=== PATIENT | male | born 1970 | race Caucasian/White ===

== ENCOUNTER 2021-05-27 18:42 | Emergency (ER) | payer OTHER, SELFPAY ==
--- NOTE | ~2021-05-27 | XR_ITS ---
EXAMINATION: XR ANKLE, RIGHT CLINICAL INFORMATION: Twisted ankle. Swelling. COMPARISON: None TECHNIQUE: 4 views. of the right ankle. FINDINGS: There is significant soft tissue swelling at the anterior lateral malleolus. There is a small avulsion chip fracture inferior to the tip of the lateral malleolus. Fracture donor site appears to be from the lateral talar process rather than the tip of the fibula. Image #2. No fracture of the tibia. Ankle mortise remains congruent. XR/XR ankle RT 2V IMPRESSION: 1. Small avulsion chip fracture from the lateral talar process. 2. Soft tissue swelling at the anterior lateral ankle.
[2021-05-27 18:52] VITALS: BP 137/95; PULSE 92; RESP 18; TEMP 36.8; O2SAT 99; BMI 26.7
--- NOTE | 2021-05-27 20:39 | ED_ITS ---
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 Patient denies hitting head or loss of consciousness. Related Data Previous Rx's Medication Instructions Recorded naproxen 500 mg tablet 500 mg PO BID PRN #20 tab 05/27/21 oxycodone-acetaminophen 5 mg-325 1 tab PO TID PRN #9 tab 05/27/21 mg tablet (Percocet) Allergies Allergy/AdvReac Type Severity Reaction Status Date / Time No Known Allergies Allergy Verified 05/27/21 19:58 [No Known Allergies*] Review of Systems Review of Systems: Yes all other systems are reviewed and are negative Constitutional: Constitutional: Reports as per HPI and Reports no additional constitutional complaints Eyes: Eyes: Reports as per HPI and Reports no additional eye complaints ENT: Reports system reviewed and no additional complaints, except as documented and Reports as per HPI Cardiovascular: Cardiovascular: Reports as per HPI and Reports no additional cardiovascular complaints Respiratory: Respiratory: Reports as per HPI and Reports no additional respiratory complaints Gastrointestinal: Gastrointestinal: Reports as per HPI and Reports no additional gastrointestinal complaints Genitourinary: Genitourinary: Reports no additional male genitourinary complaints and Reports as per HPI Musculoskeletal: Musculoskeletal: Reports no additional musculoskeletal complaints, Reports as per HPI and Reports arthralgias (Ankle pain) Neurologic: Reports system reviewed and no additional complaints, except as documented and Reports as per HPI Psychiatric: Psychiatric: Reports no additional psychiatric complaints and Reports as per HPI PMF Past Medical History Medical History (Updated 05/27/21 @ 20:52 by INGA Rojas) Hernia Surgical History (Updated 05/27/21 @ 18:56 by Indigo Francisco) Hx of appendectomy Social History Social History Advance Directives: No Physical Exam Vital Signs: Vital Signs: Last Vital Signs Temp 98.2 F 05/27/21 18:52 Pulse 92 05/27/21 18:52 Resp 18 05/27/21 18:52 BP 137/95 H 05/27/21 18:52 Pulse Ox 99 05/27/21 18:52 Body Mass Index 26.7 Const: General: cooperative, healthy appearing, comfortable, no acute distress, well developed and alert Orientation/consciousness: patient oriented x3 HENMT: Head: Yes normal to inspection, Yes No palpable skull fracture present, Yes normocephalic and Yes atraumatic Eyes: General: appearance normal, both eyes and all related structures Neck: Neck: Yes normal visual inspection, Yes full ROM, Yes no lymphadenopathy , Yes no meningeal signs, Yes trachea midline, Yes supple and No tender Chest: Chest palpation & inspection: normal inspection of the chest and normal palpation of entire chest wall Resp: Effort & Inspection: normal respiratory effort and able to speak in complete sentences Auscultation: clear to auscultation bilaterally Cardio: Jugular venous distension: no JVD Heart sounds: S1 normal heart sound present and S2 normal heart sound present GI: Inspection: Yes normal to inspection and No abdominal wall ecchymosis Palpation (GI): Soft to palpation, not firm, nontender, no guarding and not rigid : General: No CVA tenderness and Yes no CVA tenderness Back/Spine/Pelvis: Back: no CVA tenderness, No CVA tenderness and No back tenderness Skin: General skin exam: no rashes or lesions noted and elasticity normal Neuro: General: patient oriented x3, gait normal, no meningeal signs and CN's II-XI intact bilaterally Cranial nerves: Yes CN's II-XII intact bilaterally Extrem: General: Yes normal to inspection and Yes full ROM Ankle/foot/toe images: 1. Swelling with ecchymosis and tenderness on palpation. Pedal pulses intact. Vascular and neuro exam intact. Motor exam limited due to pain caused by fracture. Achilles tendon intact. Psych: Appearance: grossly normal, well kempt and not disheveled Course Course Course Narrative: Patient sent for fracture Reevaluation(s) Reevaluation #1: Patient will be placed in posterior splint follow orthopedic. Patient also given crutches Time: 20:50 MDM - Extremity Injury (Lower) MDM Narrative Medical decision making narrative: Left lateral talus fracture Discharge Plan Discharge Clinical Impression: Fracture of talus Patient Disposition: Home, Self-Care Instructions: Foot Fracture in Adults (ED) Additional Instructions: X-ray shows foot fracture. Return to the ED for worsening pain, swelling, bluish black discoloration of toes, numbness, tingling, paralysis of extremities, leg swelling, calf pain, chest pain, shortness of breath, redness, fever, chills, pus discharge, foul odor, or any other concerning symptoms. Prescriptions: New naproxen 500 mg tablet 500 mg PO BID PRN (Reason: pain) Qty: 20 RF: 0 oxycodone-acetaminophen [Percocet] 5-325 mg tablet 1 tab PO TID PRN (Reason: pain) Qty: 9 RF: 0 Referrals: Rick Jin MD [Physician] - 2 days (Foot fracture) Stand Alone Forms: Work/School Release Print Language: Romansh
[2021-05-27] MEDS: Ibuprofen 800 MG TABLET PO (21:27)
--- NOTE | 2021-05-27 22:00 | PC.NURSE ---
POSTERIOR SHORT LEG SPLINT APPLY TO PATIENT RIGHT LEG .
== END 2021-05-27 22:34 | disposition home or self-care (01) ==
PROVIDERS: Emergency Provider Internal Medicine; PCP Nurse Practitioner Family
DX: S92.151A Displaced avulsion fracture (chip fracture) of right talus, initial encounter for closed fracture (principal); X50.1XXA Overexertion from prolonged static or awkward postures, initial encounter; Y93.01 Activity, walking, marching and hiking; Y92.89 Other specified places as the place of occurrence of the external cause; Y99.0 Civilian activity done for income or pay
CPT/HCPCS: 73600; 99284